=== PATIENT | male | born 1975 | race Caucasian/White ===

== ENCOUNTER 2025-01-21 14:28 | Emergency (ER) | payer BC, OTHER ==
[2025-01-21 14:57] VITALS: BP 138/82; PULSE 82
[2025-01-21] MEDS: Ketorolac 30 MG/ML SDV IM ONE (15:06)
== END 2025-01-21 15:15 | disposition home or self-care (01) ==
LOC: CC.ED 14:28
DX: S93.401A Sprain of unspecified ligament of right ankle, initial encounter (principal); Z91.040 Latex allergy status; Z88.8 Allergy status to other drugs, medicaments and biological substances; Z79.899 Other long term (current) drug therapy; X50.9XXA Other and unspecified overexertion or strenuous movements or postures, initial encounter
CPT/HCPCS: 73610-RT; 96372; 99283; J1885